=== PATIENT | female | born 1980 | race Caucasian/White ===

== ENCOUNTER 2019-08-25 02:05 | Emergency (ER) | payer BC ==
[2019-08-25] MEDS ORDERED: Ondansetron 4 MG/2 ML SDV IVPUSH ONE (02:18)
[2019-08-25] MEDS ORDERED: Sodium Chloride 0.9% 500 ML IV ONE (02:19)
--- NOTE | 2019-08-25 02:20 | EDM.PDOC ---
ED HPI GENERAL MEDICAL PROBLEM - General Chief Complaint: Drug or Alcohol Abuse Stated Complaint: [facility] Time Seen by Provider: 08/25/19 02:15 Source of Information: Reports: EMS, Family History Limitations: Reports: Intoxication - History of Present Illness INITIAL COMMENTS - FREE TEXT/NARRATIVE: Brought by paramedics after [place] She has had repeated episodes of vomiting. She offers little history in between vomiting. Onset: Today - Related Data Allergies Allergy/AdvReac Type Severity Reaction Status Date / Time No Known Allergies Allergy Verified 08/25/19 02:19 Home Meds: Home Meds NK [No Known Home Meds] 08/25/19 [History] ED ROS GENERAL - Review of Systems Review Of Systems: Unable To Obtain Reason Not Obtained: Unable to reliably obtain history due to his intoxicated status a - Physical Exam Exam: See Below Exam Limited By: Intoxication General Appearance: Moderate Distress (Due to vomiting.) Respiratory/Chest: Lungs Clear Cardiovascular: Regular Rate, Rhythm GI/Abdominal: Soft, Tender (Diffuse tenderness.) Neuro Exam (Abbreviated): Slow to Respond Course - Vital Signs Last Recorded V/S: Last Vital Signs Temp 36.1 C 08/25/19 02:15 Pulse 62 08/25/19 04:29 Resp 14 08/25/19 02:15 BP 105/56 L 08/25/19 04:29 Pulse Ox 95 08/25/19 02:15 - Orders/Labs/Meds Labs: Laboratory Tests 08/25/19 08/25/19 08/25/19 Range/Units 02:25 02:25 02:25 WBC 10.0 (4.5-11.0) K/uL RBC 4.16 (3.30-5.50) M/uL Hgb 11.9 L (12.0-15.0) g/dL Hct 37.5 (36.0-48.0) % MCV 90 (80-98) fL MCH 29 (27-31) pg MCHC 32 (32-36) % Plt Count 236 (150-400) K/uL Neut % (Auto) 69 H (36-66) % Lymph % (Auto) 23 L (24-44) % Rush % (Auto) 6 (2-6) % Eos % (Auto) 2 (2-4) % Baso % (Auto) 0 (0-1) % Sodium 142 (140-148) mmol/L Potassium 3.0 L (3.6-5.2) mmol/L Chloride 105 (100-108) mmol/L Carbon Dioxide 26 (21-32) mmol/L Anion Gap 14.0 (5.0-14.0) mmol/L BUN 10 (7-18) mg/dL Creatinine 0.8 (0.6-1.0) mg/dL Est Cr Clr Drug Dosing 87.51 mL/min Estimated GFR (MDRD) > 60 (>60) Glucose 125 H (74-106) mg/dL Calcium 7.9 L (8.5-10.1) mg/dL Total Bilirubin 0.1 L (0.2-1.0) mg/dL AST 7 L (15-37) U/L ALT 19 (12-78) U/L Alkaline Phosphatase 48 (46-116) U/L Total Protein 6.5 (6.4-8.2) g/dL Albumin 3.5 (3.4-5.0) g/dL Globulin 3.0 (2.3-3.5) g/dL Albumin/Globulin Ratio 1.2 (1.2-2.2) Lipase 76 (73-393) U/L HCG, Qual Negative Ethyl Alcohol mg/dL 08/25/19 Range/Units 02:25 WBC (4.5-11.0) K/uL RBC (3.30-5.50) M/uL Hgb (12.0-15.0) g/dL Hct (36.0-48.0) % MCV (80-98) fL MCH (27-31) pg MCHC (32-36) % Plt Count (150-400) K/uL Neut % (Auto) (36-66) % Lymph % (Auto) (24-44) % Rush % (Auto) (2-6) % Eos % (Auto) (2-4) % Baso % (Auto) (0-1) % Sodium (140-148) mmol/L Potassium (3.6-5.2) mmol/L Chloride (100-108) mmol/L Carbon Dioxide (21-32) mmol/L Anion Gap (5.0-14.0) mmol/L BUN (7-18) mg/dL Creatinine (0.6-1.0) mg/dL Est Cr Clr Drug Dosing mL/min Estimated GFR (MDRD) (>60) Glucose (74-106) mg/dL Calcium (8.5-10.1) mg/dL Total Bilirubin (0.2-1.0) mg/dL AST (15-37) U/L ALT (12-78) U/L Alkaline Phosphatase (46-116) U/L Total Protein (6.4-8.2) g/dL Albumin (3.4-5.0) g/dL Globulin (2.3-3.5) g/dL Albumin/Globulin Ratio (1.2-2.2) Lipase (73-393) U/L HCG, Qual Ethyl Alcohol 247 mg/dL Meds: Medications Discontinued Medications Generic Name Dose Route Start Last Admin Trade Name Freq PRN Reason Stop Dose Admin Sodium Chloride 500 mls @ 500 mls/hr 08/25/19 02:19 08/25/19 02:27 Normal Saline IV 08/25/19 03:18 500 mls/hr .BOLUS ONE Administration Ondansetron HCl 4 mg 08/25/19 02:18 08/25/19 02:27 Zofran IVPUSH 08/25/19 02:19 4 mg ONETIME ONE Administration - Re-Assessments/Exams Free Text/Narrative Re-Assessment/Exam: 08/25/19 02:21 Patient will be given normal saline at 500 mL per hour and ondansetron 4 mg IV. 08/25/19 05:05 Her ethanol level was found to be 0.24. She was given 1 L of normal saline along with 4 mg of ondansetron. Eventually, there were no more vomiting episodes and she was sleeping but still arousable with a firm voice. Family remained in the waiting room during her time in the department and eventually she was able to be aroused enough, placed in a wheelchair and assisted into the family vehicle to go home. He will still take a number of hours for her alcohol to clear completely. I recommend no alcohol consumption and use of liquid antacid as needed for any stomach discomfort. Departure - Departure Time of Disposition: 04:42 Disposition: Home, Self-Care 01 Clinical Impression: Alcohol intoxication Qualifiers: Complication of substance-induced condition: uncomplicated Qualified Code(s): F10.920 - Alcohol use, unspecified with intoxication, uncomplicated Nausea and vomiting Qualifiers: Vomiting type: unspecified Vomiting Intractability: non-intractable Qualified Code(s): R11.2 - Nausea with vomiting, unspecified - Discharge Information *PRESCRIPTION DRUG MONITORING PROGRAM REVIEWED*: Not Applicable *COPY OF PRESCRIPTION DRUG MONITORING REPORT IN PATIENT JORGE: Not Applicable Instructions: Alcohol Intoxication, [id number] Referrals: PCP,None [Primary Care Provider] - Forms: ED Department Discharge Additional Instructions: Rest at home today. They will take 10-12 hours for your blood alcohol level to return to normal. You may still have feeling like you want to vomit because of what happened tonight. Recommend not drinking alcohol. Liquid antacids can provide additional relief to the stomach. Symptoms should improve with time. Return to ER if feeling worse in anyway. Sepsis Event Note - Focused Exam Vital Signs: Vital Signs Temp Pulse Resp BP Pulse Ox 08/25/19 04:29 62 105/56 L 08/25/19 03:29 57 L 94/55 L 08/25/19 02:15 36.1 C 54 L 14 102/62 95 Date Exam was Performed: 08/25/19 Time Exam was Performed: 05:03
== END 2019-08-25 04:55 | disposition home or self-care (01) ==
LOC: JP.ED 02:05
DX: F10.120 Alcohol abuse with intoxication, uncomplicated (principal); Y90.8 Blood alcohol level of 240 mg/100 ml or more; R11.2 Nausea with vomiting, unspecified
CPT/HCPCS: 36415; 80053; 80307; 83690; 84703; 85025; 96361; 96374; 99284; J2405; J7040